=== PATIENT | female | born 1985 | race Caucasian/White ===

== ENCOUNTER 2019-04-12 15:44 | Emergency (ER) | payer OTHER ==
[~2019-04-12] VITALS: Ht 162.5 cm; Wt 86.2 kg
[~2019-04-12 15:44] MED LIST: DIFLUCAN150 MG PO; LAMICTAL200 MG PO; PYRIDIUM200 M1 PO; SEPTDS PO; ZOFRAN4 MG PO; ZOLOFT100 MG PO
[2019-04-12] MEDS ORDERED: TESSALON PERLE100 M1 PO (18:30)
[2019-04-12] MEDS ORDERED: PROVENTIL HFA6.7 GM INH (18:30)
== END 2019-04-12 18:35 | disposition home or self-care (01) ==
LOC: ED 15:44
DX: J11.1 Influenza due to unidentified influenza virus with other respiratory manifestations (principal); Z79.899 Other long term (current) drug therapy

== ENCOUNTER 2021-11-14 10:40 | Emergency (ER) | payer MEDICARE ==
[~2021-11-14 10:40] MED LIST changes: +PROVENTIL HFA6.7 GM INH; +TESSALON PERLE100 M1 PO
== END 2021-11-14 13:00 | disposition home or self-care (01) ==
LOC: ED 10:40
DX: U07.1 COVID-19 (principal); Z79.899 Other long term (current) drug therapy

== ENCOUNTER 2022-04-22 02:14 | Emergency (ER) | payer MEDICARE ==
[~2022-04-22] VITALS: Ht 165.1 cm; Wt 68.0 kg
[2022-04-22] MEDS ORDERED: ATARAX,VISTARIL10 MG PO (02:25)
[2022-04-22] MEDS ORDERED: BUPROPION HYDR200 M2 PO (02:25)
[2022-04-22 02:56] LABS: BASO # 0.1 10*3/uL (0.0-0.1); BASO % 0.6 % (0.0-1.0); EOS # 0.2 10*3/uL (0.0-0.4); EOS % 1.9 % (1.0-4.0); HEMATOCRIT 38.9 % (37.0-47.0); LYMPH # 1.9 10*3/uL (1.3-4.4); LYMPH % 23.2 % (27.0-41.0); MEAN CELL VOLUME 92.6 fl (81.0-99.0); MEAN CORPUSCULAR HGB 29.3 pg (27.0-31.0); MEAN CORPUSCULAR HGB CONC 31.6 g/dl (33.0-37.0); MEAN PLATELET VOLUME 9.5 fl (9.6-12.3); MONO # 0.5 10*3/uL (0.1-1.0); MONO % 6.7 % (3.0-9.0); NEUT # 5.4 10*3/uL (2.3-7.9); NEUT % 67.4 % (47.0-73.0); PLATELET COUNT AUTOMATED 263 10*3/uL (130-400)
[2022-04-22 03:21] LABS: BUN 9 mg/dl (9-23); CHLORIDE 105 mmol/L (98-107); POTASSIUM 3.4 mmol/L (3.4-5.1)
== END 2022-04-22 04:38 | disposition home or self-care (01) ==
LOC: ED 02:14
PROVIDERS: Internal Medicine
DX: N93.9 Abnormal uterine and vaginal bleeding, unspecified (principal)

== ENCOUNTER 2022-05-07 03:11 | Emergency (ER) | payer MEDICARE ==
[~2022-05-07] VITALS: Ht 162.5 cm; Wt 68.0 kg
[~2022-05-07 03:11] MED LIST changes: +ATARAX,VISTARIL10 MG PO; +BUPROPION HYDR200 M2 PO
[2022-05-07] MEDS ORDERED: TRAZODONE100 MG PO (03:24)
[2022-05-07 03:50] LABS: BASO % 0.3 % (0.0-1.0); EOS # 0.1 10*3/uL (0.0-0.4); EOS % 0.8 % (1.0-4.0); HEMATOCRIT 33.7 % (37.0-47.0); LYMPH # 1.7 10*3/uL (1.3-4.4); LYMPH % 25.1 % (27.0-41.0); MEAN CELL VOLUME 90.3 fl (81.0-99.0); MEAN PLATELET VOLUME 9.5 fl (9.6-12.3); MONO # 0.5 10*3/uL (0.1-1.0); MONO % 7.5 % (3.0-9.0); NEUT # 4.4 10*3/uL (2.3-7.9); NEUT % 66.1 % (47.0-73.0); PLATELET COUNT AUTOMATED 223 10*3/uL (130-400); RED BLOOD COUNT 3.73 10*6/uL (4.10-5.10); RED CELL DISTRI WIDTH 13.2 % (0-14.5); WHITE BLOOD COUNT 6.7 10*3/uL (4.8-10.8)
[2022-05-07 04:08] LABS: ALKALINE PHOSPHATASE 41 U/L (46-116); BUN 6 mg/dl (9-23); CHLORIDE 106 mmol/L (98-107); POTASSIUM 3.3 mmol/L (3.4-5.1); SGPT/ALT 7 U/L (10-49); TOTAL PROTEIN 6.3 gm/dL (6.0-8.0)
== END 2022-05-07 07:21 | disposition home or self-care (01) ==
LOC: ED 03:11
PROVIDERS: Emergency Medicine
DX: R07.9 Chest pain, unspecified (principal); R91.1 Solitary pulmonary nodule; Z79.899 Other long term (current) drug therapy